=== PATIENT | male | born 1990 | race Hispanic/Latino ===

== ENCOUNTER 2022-03-30 13:38 | Emergency (ER) | payer SELFPAY ==
[2022-03-30] MEDS ORDERED: LIDOCAINE 1% MPF 5 ML VIAL ONE (14:10)
--- NOTE | 2022-03-30 14:28 | ER ---
Nurse's Notes [facility] Name: Stas Tran Age: 32 yrs Sex: Male : 1990 Arrival Date: 03/30/2022 Time: 13:40 Bed 10 Private MD: Diagnosis: Cutaneous abscess of right axilla Presentation: 03/30 13:42 Chief complaint: Patient states: Two abscesses to right under arm since 1 week ago. ld1 Coronavirus screen: At this time, the client does not indicate any symptoms associated with coronavirus-19. Ebola Screen: No symptoms or risks identified at this time. Initial Sepsis Screen: Does the patient meet any 2 criteria? No. Patient's initial sepsis screen is negative. Does the patient have a suspected source of infection? No. Patient's initial sepsis screen is negative. Risk Assessment: Do you want to hurt yourself or someone else? Patient reports no desire to harm self or others. Onset of symptoms was March 30, 2022. 13:42 Method Of Arrival: Ambulatory ld1 13:42 Acuity: MIMI 4 ld1 Triage Assessment: 13:43 General: Appears in no apparent distress. comfortable, Behavior is calm, cooperative, ld1 appropriate for age. Pain: Complains of pain in right axilla Pain does not radiate. Pain currently is 7 out of 10 on a pain scale. Quality of pain is described as sharp, shooting. EENT: No signs and/or symptoms were reported regarding the EENT system. Neuro: Level of Consciousness is awake, alert, obeys commands, Oriented to person, place, time, situation, Appropriate for age. Cardiovascular: Capillary refill < 3 seconds Patient's skin is warm and dry. Respiratory: Airway is patent Respiratory effort is even, unlabored. GI: Abdomen is flat, non-distended. : No signs and/or symptoms were reported regarding the genitourinary system. Derm: Abscess located on right axilla. Historical: - Allergies: 13:43 No Known Allergies; ld1 - Home Meds: 13:43 None [Active]; ld1 - PMHx: 13:43 None; ld1 - PSHx: 13:43 None; ld1 - Immunization history:: Adult Immunizations up to date, Client reports receiving the 2nd dose of the Covid vaccine. - Social history:: Smoking status: Patient denies any tobacco usage or history of. Patient/guardian denies using alcohol. - Family history:: not pertinent. Screenin:05 Abuse screen: Denies threats or abuse. Denies injuries from another. Nutritional kb3 screening: No deficits noted. Tuberculosis screening: No symptoms or risk factors identified. Fall Risk None identified. Assessment: 14:00 Reassessment: Patient appears in no apparent distress at this time. General: Appears in kb3 no apparent distress. Behavior is calm, cooperative. General: Received care of pt from Iris JUNG, AAO x4. Pt reports 2 small abscesses in right axilla x several days.. Derm: Abscess located on right axilla. Vital Signs: 13:42 BP 150 / 83; Pulse 81; Resp 18; Temp 97.6(TE); Pulse Ox 98% on R/A; Weight 72.12 kg; ld1 Height 5 ft. 6 in. (167.64 cm); Pain 7/10; 14:05 BP 141 / 71; Pulse 72; Resp 20; Pulse Ox 99% ; kb3 13:42 Body Mass Index 25.66 (72.12 kg, 167.64 cm) ld1 ED Course: 13:40 Patient arrived in ED. rg4 13:43 Triage completed. ld1 13:43 Geo Small MD is Attending Physician. rt 13:43 Arm band placed on right wrist. ld1 13:46 Iris Martin, RN is Primary Nurse. iw 14:05 Patient has correct armband on for positive identification. Placed in gown. Bed in low kb3 position. Call light in reach. 14:05 Assist provider with I \T\ D: Set up I\T\D tray. Patient admitted, IV remains in place. kb 3 14:30 Dressings: 4X4s X 4; right axilla. kb3 Administered Medications: 14:38 Drug: Lidocaine (1 %) 5 ml {Note: Administered by Dr Small.} Volume: 5 ml; Route: kb3 Infiltration; 14:39 Follow up: Response: No adverse reaction kb3 Medication: 14:05 VIS not applicable for this client. kb3 Outcome: 14:27 Discharge ordered by . rt 14:35 Discharged to home ambulatory. kb3 14:35 Condition: stable 14:35 Discharge instructions given to patient, Instructed on discharge instructions, follow kb3 up and referral plans. medication usage, Demonstrated understanding of instructions, follow-up care, medications, Prescriptions given X 1. 14:45 Patient left the ED. kb3 Signatures: Iris Martin, RN RN Chloé Sims rg4 Alka Renteria RN RN ld1 Tami Shin RN RN kb3 Geo Small MD MD rt Corrections: (The following items were deleted from the chart) 14:42 14:39 Reassessment: Patient appears in no apparent distress at this time. kb3 kb3 14:42 14:39 General: Appears in no apparent distress. Behavior is calm, cooperative, kb3 kb3 14:42 14:41 General: Received care of pt from Iris RN, AAO x4. Pt reports 2 small abscesses kb3 in right axilla x several days.. kb3 14:42 14:41 Derm: Abscess located on right axilla kb3 kb3
--- NOTE | 2022-03-30 14:28 | EDPHYS ---
Physician Documentation [facility] Name: Stas Tran Age: 32 yrs Sex: Male : 1990 Arrival Date: 03/30/2022 Time: 13:40 Bed 10 Private MD: ED Physician Geo Small HPI: 03/30 14:29 This 32 yrs old Male presents to ER via Ambulatory with complaints of Abscess. rt 14:29 The patient presents with an abscess of the right axilla. Onset: The symptoms/episode rt began/occurred 1 week(s) ago. Associated signs and symptoms: The patient has no apparent associated signs or symptoms. Modifying factors: the symptoms are alleviated by nothing, the symptoms are aggravated by nothing. Severity of symptoms: At their worst the symptoms were mild. Presents to the ED with 2 abscesses under the right axilla for the past week. He states that one of the abscesses seems to be getting smaller while the other 1 seems to be getting bigger. He reports pain to this area, aching nature, nonradiating. Denies other acute complaints at this time. Symptoms are mild in severity.. Historical: - Allergies: 13:43 No Known Allergies; ld1 - Home Meds: 13:43 None [Active]; ld1 - PMHx: 13:43 None; ld1 - PSHx: 13:43 None; ld1 - Immunization history:: Adult Immunizations up to date, Client reports receiving the 2nd dose of the Covid vaccine. - Social history:: Smoking status: Patient denies any tobacco usage or history of. Patient/guardian denies using alcohol. - Family history:: not pertinent. ROS: 14:29 Constitutional: Negative for fever, chills, and weight loss, Eyes: Negative for injury, rt pain, redness, and discharge, Cardiovascular: Negative for chest pain, palpitations, and edema, Respiratory: Negative for shortness of breath, cough, wheezing, and pleuritic chest pain, Abdomen/GI: Negative for abdominal pain, nausea, vomiting, diarrhea, and constipation, MS/Extremity: Negative for injury and deformity, Neuro: Negative for headache, weakness, numbness, tingling, and seizure, Psych: Negative for depression, anxiety, suicide ideation, homicidal ideation, and hallucinations. 14:29 Skin: Positive for abscess, Negative for cellulitis. Exam: 14:29 Constitutional: This is a well developed, well nourished patient who is awake, alert, rt and in no acute distress. Neck: Trachea midline, no thyromegaly or masses palpated, and no cervical lymphadenopathy. Supple, full range of motion without nuchal rigidity, or vertebral point tenderness. No Meningismus. Cardiovascular: Regular rate and rhythm with a normal S1 and S2. No gallops, murmurs, or rubs. Normal PMI, no JVD. No pulse deficits. Respiratory: Lungs have equal breath sounds bilaterally, clear to auscultation and percussion. No rales, rhonchi or wheezes noted. No increased work of breathing, no retractions or nasal flaring. Abdomen/GI: Soft, non-tender, with normal bowel sounds. No distension or tympany. No guarding or rebound. No evidence of tenderness throughout. MS/ Extremity: Pulses equal, no cyanosis. Neurovascular intact. Full, normal range of motion. Neuro: Awake and alert, GCS 15, oriented to person, place, time, and situation. Cranial nerves II-XII grossly intact. Motor strength 5/5 in all extremities. Sensory grossly intact. Cerebellar exam normal. Normal gait. Psych: Awake, alert, with orientation to person, place and time. Behavior, mood, and affect are within normal limits. 14:29 Skin: 2 abscesses to the right axilla, one is 1 cm, fluctuant, the other is about 2-1/2 cm, also fluctuant. No overlying skin changes.. Vital Signs: 13:42 BP 150 / 83; Pulse 81; Resp 18; Temp 97.6(TE); Pulse Ox 98% on R/A; Weight 72.12 kg; ld1 Height 5 ft. 6 in. (167.64 cm); Pain 7/10; 14:05 BP 141 / 71; Pulse 72; Resp 20; Pulse Ox 99% ; kb3 13:42 Body Mass Index 25.66 (72.12 kg, 167.64 cm) ld1 Procedures: 14:29 I \T\ D: Incision and drainage was performed for an abscess of the right axilla. Prepped rt with alcohol, Anesthetized with 1 ml's 1% Lidocaine. Incised with #11 blade. Drained small amount the patient tolerated the procedure well. 14:29 I \T\ D: Incision and drainage was performed for an abscess of the. rt MDM: 13:45 Patient medically screened. rt 14:29 Differential diagnosis: abscess, cellulitis, insect bite. Data reviewed: vital signs, rt nurses notes. ED course: Presents to the ED with 2 abscesses to the axilla, both incised and drained without difficulty. A small amount of pus was removed. Patient is stable vital signs, no evidence for sepsis, necrotizing fasciitis. Patient stable for outpatient care with antibiotics, was instructed to follow-up with primary care.. 03/30 13:51 Order name: I\T\D Setup; Complete Time: 14:12 rt Administered Medications: 14:38 Drug: Lidocaine (1 %) 5 ml {Note: Administered by Dr Small.} Volume: 5 ml; Route: kb3 Infiltration; 14:39 Follow up: Response: No adverse reaction kb3 Disposition Summary: 03/30/22 14:27 Discharge Ordered Location: Home rt Problem: new rt Symptoms: have improved rt Condition: Stable rt Diagnosis - Cutaneous abscess of right axilla rt Followup: rt - With: Private Physician - When: 5 - 6 days - Reason: Discharge Instructions: - Discharge Summary Sheet rt - Skin Abscess rt Forms: - Medication Reconciliation Form rt - Thank You Letter rt - Work release form kb3 - Antibiotic Education rt - Prescription Opioid Use rt Prescriptions: - Doxycycline Hyclate 100 mg Oral Tablet - take 1 tablet by ORAL route every 12 hours; 20 tablet; Refills: 0, Product rt Selection Permitted Signatures: Alka Renteria RN RN ld1 Tami Shin RN RN kb3 Geo Small MD MD rt
[2022-03-30 15:04] VITALS: TEMP 97.6
[2022-03-30 15:05] VITALS: BP 141/71; O2SAT 99
== END 2022-03-30 14:45 | disposition home or self-care (01) ==
LOC: ER 13:38
PROC: 0H9BXZZ Drainage of Right Upper Arm Skin, External Approach (ICD-10-PCS; principal; 2022-03-30)
DX: L02.411 Cutaneous abscess of right axilla (principal)
CPT/HCPCS: 99283; J2001